=== PATIENT | male | born 1930 | race Caucasian/White ===

== ENCOUNTER 2018-05-27 04:07 | Inpatient (IN) ==
[2018-05-27 04:38] LABS: Basophils % 0.5 % (0.0-0.8); Eosinophils # 0.1 10*3/uL (0.0-0.87); Eosinophils % 1.2 % (0.00-10.9); Hemoglobin 13.2 GM/DL (14.0-18.0); Immature Granulocytes % 0.5 %; Immature Granulocytes Absolute 0.04 #; Lymphocytes # 1.2 10*3/uL (1.4-4.0); Lymphocytes % 14.7 % (21.2-54.2); Mean Corpuscular HGB Conc 32.2 GM/DL (32-36); Mean Corpuscular Hemoglobin 28 PG (27-34); Mean Corpuscular Volume 88.2 FL (87-102); Mean Platelet Volume 9.7 FL (9.6-12.0); Monocytes # 0.4 10*3/uL (0.11-0.8); Monocytes % 5.2 % (1.7-12.7); Neutrophils # 6.4 10*3/uL (1.4-7.4); Neutrophils % 77.9 % (38.7-73.9); Platelet Count 191 T/CUMM (130-400); Red Blood Count 4.65 MC/CUMM (3.8-5.5); Red Cell Distribution Width 14.1 % (9.3-17.3); White Blood Count 8.2 T/CUMM (4-12)
[2018-05-27 04:45] LABS: PT Patient Result 10.9 SECS; Partial Thromboplastin Time 30.4 SECS (0-40)
[2018-05-27 05:01] LABS: Alanine Aminotransferase 12 U/L (16-61); Albumin 2.9 G/DL (3.4-5.0); Alkaline Phosphatase 113 U/L (45-117); Aspartate Amino Transferase 10 U/L (0-37); Bilirubin,Total < 0.39 MG/DL (0.2-1.0); Blood Urea Nitrogen 34 MG/DL (7-18); Calcium 8.5 MG/DL (8.5-10.1); Glucose 105 MG/DL (74-106); Lactic Acid 0.8 MMOL/L (0.4-2.0); Osmolality,Calculated 286.4 MOS/KG (273-304); Potassium 4.4 MMOL/L (3.5-5.1); Sodium 140 MMOL/L (136-145); Total Protein 6.3 G/DL (6.4-8.3); Troponin I < 0.015 NG/ML (0.00-0.045)
[2018-05-27] MEDS ORDERED: ONDANSETRON 4 MG/2 ML VIAL IV STA (05:40)
[2018-05-27 06:28] LABS: Apearance,Urine CLEAR (Clear); Bacteria,Urine Occasional /HPF (Few); Bilirubin,Urine Negative (Negative); Blood, Urine Negative (Negative); Glucose,Urine (UA) 150 mg/dL (Negative); Hyaline Casts,Urine 1 /LPF (0-3); Ketones,Urine Negative (Negative); Mucus,Urine Occasional /LPF (Occasional); Nitrite,Urine Negative (Negative); Protein,Urine Negative; RBC,Urine 1 /HPF (0-4); Urine Color Yellow (Yellow); Urine Urobilinogen < 2.0 EU/DL (0.2-1.0); WBC,Urine 1 /HPF (0-6)
[2018-05-27] MEDS ORDERED: PROMETHAZINE 25 MG/1 ML VIAL IM STA ×2 (06:43→06:44)
[2018-05-27] MEDS ORDERED: ACETAMINOPHEN 325 MG TABLET PO PRN (06:43)
[2018-05-27] MEDS ORDERED: ONDANSETRON 4 MG/2 ML VIAL IV PRN (06:43)
[2018-05-27] MEDS ORDERED: DEXTROSE 50% 25 GM/50 ML VIAL IV PRN (07:00)
[2018-05-27] MEDS ORDERED: GLUCAGON 1 MG VIAL IM PRN (07:00)
[2018-05-27] MEDS ORDERED: CHOLECALCIFEROL 5,000 UNIT TABLET PO SCH (09:00)
[2018-05-27] MEDS: INSULIN GLARGINE 100 UNIT/ML SUBCUT SCH (10:06)
[2018-05-27] MEDS: PANTOPRAZOLE 40 MG VIAL IV SCH (10:07)
[2018-05-27] MEDS: FUROSEMIDE 40 MG/4 ML VIAL IV SCH (10:07)
[2018-05-27] MEDS: PIPERACILLIN/TAZOBACTAM 3,375 MG in SODIUM CHLORIDE 0.9% 100 ML IV SCH ×2 (10:08→17:42)
[2018-05-27] MEDS: CARVEDILOL 3.125 MG TABLET PO SCH ×2 (10:08→21:17)
[2018-05-27] MEDS: FINASTERIDE 5 MG TABLET PO SCH (10:08)
[2018-05-27] MEDS: ASPIRIN EC 325 MG TABLET PO SCH (10:08)
[2018-05-27] MEDS: risperiDONE 1 MG TABLET PO SCH ×2 (10:08→21:17)
[2018-05-27] MEDS: TAMSULOSIN 0.4 MG CAPSULE PO SCH ×2 (10:08→21:17)
[2018-05-27] MEDS: DONEPEZIL 10 MG TABLET PO SCH (10:08)
[2018-05-27] MEDS: INSULIN LISPRO 100 UNIT/ML SUBCUT SCH ×4 (10:09→22:30)
[2018-05-27 11:09] LABS: Troponin I 0.019 NG/ML (0.00-0.045)
[2018-05-27] MEDS: VANCOMYCIN INJ 1,500 MG in SODIUM CHLORIDE 0.9% 500 ML IV SCH (14:19)
[2018-05-27 17:27] LABS: Troponin I 0.097 NG/ML (0.00-0.045)
[2018-05-27] MEDS ORDERED: QUEtiapine 25 MG TABLET PO ONE (22:43)
[2018-05-28] MEDS: INSULIN LISPRO 100 UNIT/ML SUBCUT SCH ×6 (00:12→21:57)
[2018-05-28] MEDS ORDERED: LORazepam 2 MG/1 ML VIAL IV ONE (00:33)
[2018-05-28] MEDS: PIPERACILLIN/TAZOBACTAM 3,375 MG in SODIUM CHLORIDE 0.9% 100 ML IV SCH ×3 (01:22→16:18)
[2018-05-28 06:14] LABS: Albumin 2.7 G/DL (3.4-5.0); Bilirubin,Total 0.7 MG/DL (0.2-1.0); Total Protein 6.1 G/DL (6.4-8.3)
[2018-05-28 06:15] LABS: Potassium 4.1 MMOL/L (3.5-5.1)
[2018-05-28] MEDS: FUROSEMIDE 40 MG/4 ML VIAL IV SCH (08:54)
[2018-05-28] MEDS: PANTOPRAZOLE 40 MG VIAL IV SCH (08:54)
[2018-05-28] MEDS: INSULIN GLARGINE 100 UNIT/ML SUBCUT SCH (09:02)
[2018-05-28] MEDS: CARVEDILOL 3.125 MG TABLET PO SCH ×3 (09:02→20:16)
[2018-05-28] MEDS: DONEPEZIL 10 MG TABLET PO SCH ×2 (09:02→14:27)
[2018-05-28] MEDS: TAMSULOSIN 0.4 MG CAPSULE PO SCH ×3 (09:02→20:16)
[2018-05-28] MEDS: ASPIRIN EC 325 MG TABLET PO SCH ×2 (09:02→14:27)
[2018-05-28] MEDS: risperiDONE 1 MG TABLET PO SCH ×3 (09:03→20:16)
[2018-05-28] MEDS: FINASTERIDE 5 MG TABLET PO SCH ×2 (09:03→14:27)
[2018-05-28] MEDS: VANCOMYCIN INJ 1,500 MG in SODIUM CHLORIDE 0.9% 500 ML IV SCH (14:21)
[2018-05-28] MEDS: SODIUM CHLORIDE 0.9% 1,000 ML IV SCH (14:33)
[2018-05-29] MEDS: INSULIN LISPRO 100 UNIT/ML SUBCUT SCH ×6 (00:41→21:34)
[2018-05-29] MEDS: PIPERACILLIN/TAZOBACTAM 3,375 MG in SODIUM CHLORIDE 0.9% 100 ML IV SCH ×3 (00:42→16:27)
[2018-05-29 05:09] LABS: Basophils # 0.1 10*3/uL (0.0-0.2); Basophils % 0.5 % (0.0-0.8); Eosinophils # 0.4 10*3/uL (0.0-0.87); Eosinophils % 3.7 % (0.00-10.9); Hematocrit 37.6 VOL% (42.0-52.0); Hemoglobin 11.8 GM/DL (14.0-18.0); Immature Granulocytes % 0.4 %; Immature Granulocytes Absolute 0.04 #; Lymphocytes # 1.8 10*3/uL (1.4-4.0); Lymphocytes % 16.1 % (21.2-54.2); Mean Corpuscular HGB Conc 31.4 GM/DL (32-36); Mean Corpuscular Hemoglobin 28 PG (27-34); Mean Platelet Volume 10.1 FL (9.6-12.0); Monocytes # 0.7 10*3/uL (0.11-0.8); Monocytes % 6.1 % (1.7-12.7); Neutrophils # 8.3 10*3/uL (1.4-7.4); Neutrophils % 73.2 % (38.7-73.9); Platelet Count 175 T/CUMM (130-400); Red Blood Count 4.18 MC/CUMM (3.8-5.5); Red Cell Distribution Width 14.1 % (9.3-17.3); White Blood Count 11.4 T/CUMM (4-12)
[2018-05-29 05:48] LABS: Calcium 8.7 MG/DL (8.5-10.1); Osmolality,Calculated 286.4 MOS/KG (273-304); Potassium 4.3 MMOL/L (3.5-5.1)
[2018-05-29] MEDS: ASPIRIN EC 325 MG TABLET PO SCH (09:16)
[2018-05-29] MEDS: FINASTERIDE 5 MG TABLET PO SCH (09:17)
[2018-05-29] MEDS: PANTOPRAZOLE 40 MG VIAL IV SCH (09:17)
[2018-05-29] MEDS: risperiDONE 1 MG TABLET PO SCH ×2 (09:17→21:34)
[2018-05-29] MEDS: CARVEDILOL 3.125 MG TABLET PO SCH ×2 (09:17→21:34)
[2018-05-29] MEDS: DONEPEZIL 10 MG TABLET PO SCH (09:17)
[2018-05-29] MEDS: FUROSEMIDE 40 MG/4 ML VIAL IV SCH (09:17)
[2018-05-29] MEDS: INSULIN GLARGINE 100 UNIT/ML SUBCUT SCH (09:18)
[2018-05-29] MEDS: TAMSULOSIN 0.4 MG CAPSULE PO SCH ×2 (09:18→21:34)
[2018-05-29] MEDS: SODIUM CHLORIDE 0.9% 1,000 ML IV SCH (12:51)
[2018-05-29] MEDS: VANCOMYCIN INJ 1,500 MG in SODIUM CHLORIDE 0.9% 500 ML IV SCH (14:42)
[2018-05-30] MEDS: INSULIN LISPRO 100 UNIT/ML SUBCUT SCH ×4 (00:24→12:22)
[2018-05-30] MEDS ORDERED: LORazepam 2 MG/1 ML VIAL IV ONE (03:23)
[2018-05-30 07:21] LABS: Basophils % 0.4 % (0.0-0.8); Eosinophils # 0.4 10*3/uL (0.0-0.87); Eosinophils % 3.6 % (0.00-10.9); Hematocrit 38.9 VOL% (42.0-52.0); Hemoglobin 12.7 GM/DL (14.0-18.0); Immature Granulocytes % 0.7 %; Immature Granulocytes Absolute 0.07 #; Lymphocytes # 1.7 10*3/uL (1.4-4.0); Lymphocytes % 15.6 % (21.2-54.2); Mean Corpuscular HGB Conc 32.6 GM/DL (32-36); Mean Corpuscular Hemoglobin 29 PG (27-34); Mean Corpuscular Volume 87.4 FL (87-102); Mean Platelet Volume 9.6 FL (9.6-12.0); Monocytes # 0.8 10*3/uL (0.11-0.8); Neutrophils # 7.8 10*3/uL (1.4-7.4); Neutrophils % 72.7 % (38.7-73.9); Platelet Count 195 T/CUMM (130-400); Red Blood Count 4.45 MC/CUMM (3.8-5.5); Red Cell Distribution Width 13.9 % (9.3-17.3); White Blood Count 10.7 T/CUMM (4-12)
[2018-05-30] MEDS: INSULIN GLARGINE 100 UNIT/ML SUBCUT SCH (10:01)
[2018-05-30] MEDS: PANTOPRAZOLE 40 MG VIAL IV SCH (10:02)
[2018-05-30] MEDS: FUROSEMIDE 40 MG/4 ML VIAL IV SCH (10:02)
[2018-05-30] MEDS: risperiDONE 1 MG TABLET PO SCH (10:03)
[2018-05-30] MEDS: FINASTERIDE 5 MG TABLET PO SCH (10:03)
[2018-05-30] MEDS: TAMSULOSIN 0.4 MG CAPSULE PO SCH (10:03)
[2018-05-30] MEDS: DONEPEZIL 10 MG TABLET PO SCH (10:03)
[2018-05-30] MEDS: CARVEDILOL 3.125 MG TABLET PO SCH (10:03)
[2018-05-30 11:31] VITALS: BP 152/78
== END 2018-05-30 15:50 | DRG 291 ==
LOC: N.ED 04:07 → N.EDINP 06:43 → N.TELES 08:09
PROVIDERS: ADMIT Internal Medicine; ATTEND Internal Medicine